=== PATIENT | male | born 1955 | race Caucasian/White ===

== ENCOUNTER 2020-04-01 16:53 | Emergency (ER) | payer BC, MEDICARE ==
[~2020-04-01] VITALS: Ht 182.9 cm; Wt 75.0 kg
--- NOTE | 2020-04-01 19:42 | NUR ---
[facility] CELL #[phone] ALTERNATE NUMBER TO CALL IS [phone]
[2020-04-01 21:52] VITALS: BP 153/86
--- NOTE | 2020-04-01 21:58 | NUR ---
VASCULAR AT BEDSIDE
[2020-04-01] MEDS ORDERED: ibuprofen tablet 400 MG TABLET PO ONE (22:30)
== END 2020-04-01 23:02 | disposition home or self-care (01) ==
LOC: ER 16:54
DX: M79.605 Pain in left leg (principal); M79.89 Other specified soft tissue disorders; F17.200 Nicotine dependence, unspecified, uncomplicated; Z98.890 Other specified postprocedural states
CPT/HCPCS: 93971; 99284